=== PATIENT | female | born 1950 | race Hispanic/Latino ===

== ENCOUNTER → 2020-05-08 | Outpatient (CLI) | payer MEDICARE | END | disposition home or self-care (01) | LOC: SHCH 12:37 | PROVIDERS: ATTEND Internal Medicine Cardiovascular Disease | DX: Z01.810 Encounter for preprocedural cardiovascular examination (principal); I10 Essential (primary) hypertension; I11.9 Hypertensive heart disease without heart failure | CPT/HCPCS: 93306; 93356 ==

== ENCOUNTER → 2020-12-28 | Outpatient (CLI) | payer MEDICARE ==
[~2020-12-28] VITALS: Ht 152.4 cm; Wt 72.1 kg
[2020-12-28] MEDS: REGADENOSON 0.4 MG/5 ML PF SYG IVP SCH (11:24)
== END | disposition home or self-care (01) ==
LOC: SHCH 07:57
PROVIDERS: ATTEND Internal Medicine Cardiovascular Disease
DX: R07.9 Chest pain, unspecified (principal)
CPT/HCPCS: 78452; 93017; 96374; A9500 ×2; J2785

== ENCOUNTER 2022-11-16 18:52 | Emergency (ER) | payer MEDICARE ==
[~2022-11-16] VITALS: Ht 152.4 cm; Wt 66.7 kg
[2022-11-16] MEDS ORDERED: ACETAMINOPHEN 500 MG TABLET PO ONE (20:00)
[2022-11-16] MEDS ORDERED: IBUP-1493 PO (21:13)
[2022-11-16] MEDS ORDERED: DIPH,PERTUSS(ACELL),TET VAC/PF 0.5 ML VIAL IM ONE (21:30)
[2022-11-16 21:31] VITALS: BP 133/72
== END 2022-11-16 21:38 | disposition home or self-care (01) ==
LOC: EDH 18:52
DX: S09.93XA Unspecified injury of face, initial encounter (principal); I10 Essential (primary) hypertension; Z90.49 Acquired absence of other specified parts of digestive tract; Z79.1 Long term (current) use of non-steroidal anti-inflammatories (NSAID); W22.8XXA Striking against or struck by other objects, initial encounter; Y93.89 Activity, other specified; Y92.89 Other specified places as the place of occurrence of the external cause; Y99.8 Other external cause status
CPT/HCPCS: 70450; 70480; 72125; 90471; 90715

== ENCOUNTER → 2023-05-01 | Outpatient (CLI) | payer OTHER, MEDICARE ==
[~2023-05-01] MED LIST: IBUP-1493 PO
== END | disposition home or self-care (01) ==
LOC: SHCH 14:34
PROVIDERS: ATTEND Internal Medicine Cardiovascular Disease
DX: I51.7 Cardiomegaly (principal); R01.1 Cardiac murmur, unspecified
CPT/HCPCS: 93306

== ENCOUNTER 2024-05-24 19:17 | Emergency (ER) | payer OTHER, MEDICARE ==
[~2024-05-24] VITALS: Ht 152.4 cm; Wt 68.0 kg
[2024-05-24 19:19] VITALS: BP 208/84; PULSE 88; RESP 20
[2024-05-24] MEDS: acetaMINOPHEN WITH coDEINE 1 TAB TAB PO ONE (19:56)
[2024-05-24] MEDS ORDERED: ACET-2079 PO (20:26)
== END 2024-05-24 20:51 | disposition home or self-care (01) ==
LOC: EDH 19:17
DX: M13.131 Monoarthritis, not elsewhere classified, right wrist (principal); I10 Essential (primary) hypertension; Z79.899 Other long term (current) drug therapy; Z90.49 Acquired absence of other specified parts of digestive tract; Z90.710 Acquired absence of both cervix and uterus; Z98.890 Other specified postprocedural states
CPT/HCPCS: 29125; 36415; 73080; 73090; 73110; 84550

== ENCOUNTER 2025-06-27 21:43 | Emergency (ER) | payer OTHER, MEDICARE ==
[~2025-06-27] VITALS: Ht 149.9 cm; Wt 67.1 kg
[~2025-06-27 21:43] MED LIST changes: +ACET-2079 PO
[2025-06-27 21:44] VITALS: TEMP 98.3
--- NOTE | 2025-06-27 22:25 | ERN ---
ED Note History of Present Illness Stated Complaint: RT FOOT PAIN Chief Complaint: FOOT INJURY/PAIN Time Seen by MD: 21:45 Time Seen by Midlevel: 21:45 Dictation: The patient is a 75-year-old female with history of hypertension who presents to the emergency department with complaints of right foot pain onset 2:00 p.m. after she accidentally stepped on a hole while out in the yard. Patient reports that her foot twisted. Denies any ankle pain. Denies any falls or any other trauma. Allergies: Coded Allergies: ibuprofen (Unverified Allergy, Intermediate, 06/27/25) Home Meds Active Scripts Acetaminophen with Codeine (Acetaminophen-Cod #3 Tablet) 300 Mg-30 Mg Tablet, 1 TAB PO Q6H PRN for MODERATE TO SEVERE PAIN, #12 TAB 0 Refills Prov:NANO ESPINOSA [employer] 05/24/24 Ibuprofen (Motrin/Advil) 800 Mg Tab, 800 MG PO TID, #30 TAB Prov:RALPH MCNEIL MD 11/16/22 Past Medical History Past Medical History: Hypertension Surgical History: Hysterectomy, Cholecystectomy, Other Surgical History Other: RT WRIST, LEFT LEG History: Not Applicable RN Note Reviewed/Agreed w/PFSH: Yes Review of System Dictation Constitutional: Negative for fever,chills, and weight loss Eyes: Negative for injury, pain,redness, and discharge ENT: Negative for injury,pain or swelling Cardiovascular: Negative for chest pain, palpitations, and edema Respiratory: Negative for shortness of breath, cough, and wheezing, Abdomen/GI: Negative for abdominal pain, nausea, vomiting, diarrhea, and constipation Back: Negative for injury and pain : Negative for injury, bleeding and discharge MS/Extremity: Positive for right foot pain Skin: Negative for rash, and discoloration Neuro: Negative for headache, weakness, numbness, tingling, and seizure Psych: Negative for suicide ideation, homicidal ideation, and hallucinations Initial Vital Sign VS Vital Signs Date Time Temp Pulse Resp B/P (MAP) Pulse Ox O2 Delivery O2 Flow Rate FiO2 06/27/25 21:44 98.2 94 20 187/73 94 Room Air 06/27/25 22:11 0 21 Physical Exam Dictation Vital Signs reviewed General Appearance: Alert, oriented x 3, no acute distress, well developed, nourished. Head and Face: non-traumatic. Eyes: PERRL, pink conjunctivas, eyelid no trauma, anterior chamber with arcus senilis. Ears: Pinnas intact and no signs of trauma or erythema ear canals clear and no discharge TM no erythema Nose: No discharge, no bleeding. Oropharynx: Mouth normal, tongue pink. pharynx clear,no erythema, tonsils no exudates, no abscesses noted, mucous membrane moist Neck: Supple, non-tender, no thyromegaly, no masses, no JVD, no bruits Breast:Deferred Chest:No tenderness, no crepitus, no paradoxical movement, no retractions Lungs:Clear, well-ventilated, symmetric, no rales, no wheezing, no rhonchi, no stridor, good breath sounds bilaterally Heart: Regular rate, regular rhythm, no murmur, no gallops Vascular: no peripheral edema, Abdomen: Soft, positive bowel sounds, nondistended, no guarding, nontender, no rebound, no masses no hepatomegaly, no splenomegaly, no Fuchs's sign, no hernias. Rectal: Deferred Genital: Deferred Neurological: Normal speech, motor function intact, sensory function intact Musculoskeletal: Neck nontender, full range of motion, back nontender, full range of motion, mid dorsal foot tenderness, no deformities, no open wounds Extremities: nontender, full range of motion Skin: Color pink, dry, no turgor, no rash, no lacerations, no abrasions, no contusions. Lymphatic: Deferred Results (Laboratory/Radiology) Laboratory/Radiology EXAM: CR Right Foot, 3 views. CLINICAL HISTORY: Pain. Injury. COMPARISON: None provided. FINDINGS: No acute fracture or aggressive appearing osseous lesion. Mild osteopenia. Mild to moderate osteoarthritis. Tiny plantar and posterior calcaneal enthesophytes. The soft tissues are unremarkable. IMPRESSION: No acute bony abnormality is evident. Osteopenia and degenerative osseous changes. /[facility]ick Labs Reviewed?: Yes ED Course ED Course Orders Procedure Category Date Status Time Foot Comp 3+Vws Rt RAD 06/27/25 Resulted 21:58 Ketorolac 60mg/2ml PHA 06/27/25 Complete (Toradol 60mg/2ml) 22:00 Ibuprofen 200 Mg PHA 06/27/25 Complete Tablet (Motrin) 22:30 Ibuprofen 200 Mg PHA 06/27/25 Complete Tablet (Motrin) 22:21 Current Medications Medications (Trade) Dose Ordered Sig/Jelly Route PRN Reason Start Time Stop Time Status Last Admin Dose Admin Ibuprofen (moTRIN) 200 mg ONCE ONCE PO 06/27/25 22:30 06/27/25 22:31 DC 06/27/25 22:23 Ibuprofen (moTRIN) 200 mg STK-MED ONCE .ROUTE 06/27/25 22:21 06/27/25 22:21 DC Ketorolac Tromethamine (toRADol 60MG/ 2ML) 30 mg ONCE ONCE IM 06/27/25 22:00 06/27/25 22:18 DC Vital Signs Date Time Temp Pulse Resp B/P (MAP) Pulse Ox O2 Delivery O2 Flow Rate FiO2 06/27/25 23:11 72 18 166/77 95 Room Air* 0 21 06/27/25 22:11 88 18 184/71 95 Room Air* 0 21 06/27/25 21:44 98.2 94 20 187/73 94 Room Air Medical Decision Making MDM The patient is a 75-year-old female with history of hypertension who presents to the emergency department with complaints of right foot pain onset 2:00 p.m. after she accidentally stepped on a hole while out in the yard. Patient reports that her foot twisted. Denies any ankle pain. Denies any falls or any other trauma. X-ray showed no acute fractures or dislocations. Patient reports improving pain with medication. Patient reported that she had an allergic reaction to ibuprofen in the past she reported that she got short of breath. Patient mentions this after the fact that she received ibuprofen but patient did not have any reaction to the ibuprofen. Patient will be discharged to follow up with PCP. Patient in no acute distress, neurovascularly intact. Differential diagnosis: Foot fracture, foods sprain, dislocation Need for hospitalization: Patient does not meet criteria for hospitalization. There are no social concerns with this patient. DX & DISP Disposition: Discharge Departure Impression: Primary Impression: Right foot sprain Condition: Stable Additional Instructions: Your x-ray did not show any fractures. Please follow up with your primary doctor in 1-2 days. You can take Tylenol as needed for the pain. FOLLOW-UP WITH PRIMARY CARE PROVIDER IN 1 TO 2 DAYS. TAKE MEDICATIONS DIRECTED HERE IN THE EMERGENCY ROOM. OKAY TO CONTINUE HOME MEDICATIONS UNLESS OTHERWISE DISCUSSED DURING YOUR VISIT IN THE EMERGENCY ROOM TODAY. RETURN TO YOUR NEAREST EMERGENCY ROOM IF SYMPTOMS WORSEN OR IF THERE IS NO IMPROVEMENT. CALL 911 IF YOU NEED IMMEDIATE ASSISTANCE. TAKE TYLENOL [id number] NEEDED AND IF NO CONTRAINDICATIONS ARE PRESENT. INCREASE ORAL HYDRATION. A WOUND CULTURE OR URINE CULTURE WAS ORDERED HERE IN THE EMERGENCY ROOM DEPARTMENT PLEASE FOLLOW-UP WITH PRIMARY CARE PROVIDER AND ADVISE THEM TO GET REPEAT PORTS FROM OUR FACILITY. IF YOU HAD ANY SANNA WRAP/SPLINTS THAT WERE APPLIED HERE, PLEASE DO NOT REMOVE THEM UNTIL YOU SEE YOUR PRIMARY CARE OR SPECIALTY. Referrals: ZORA BENJAMIN MD (PCP) Time of Disposition: 23:36 I have reviewed the case, and I agree with, Diagnosis and Plan [facility] Jun 27, 2025 22:25
--- NOTE | 2025-06-27 22:28 | NUR ---
PT ADMINISTERED PO IBUPROFEN 200MG AT THIS TIME. PATIENT WAS TAKING MEDICATION THE FAMILY MEMBER AT THE BEDSIDE STATED, "IS THE MEDICATION TYLENOL 3." PRIMARY NURSE INFORMED FAMILY MEMBER THAT THE MEDICATION WAS IBUPROFEN. FAMILY MEMBER STATED THAT THEY INFORMED SOMEONE THAT SHE WAS "ALLERGIC TO IBUPROFEN." PRIMARY NURSE INFORMED FAMILY MEMBER THAT PT CHART STATES SHE HAD, "NO KNOWN DRUG ALLERGIES" LISTED ON THE CHART. PRIMARY NURSE ASKED THE FAMILY MEMBER WHAT HAPPENS WHEN SHE TAKES IBUPROFEN AND THE PATIENT STATES SHE BECOMES SHORT OF BREATH. PT WAS PLACED ON MONITOR PRIOR TO ADMINISTRATION OF MEDICATION. PRIMARY NURSE INFORMED THE PATIENT AND THE FAMILY MEMBER THAT SHE WILL MONITOR VITAL SIGNS AND INFORM THE ER STALLION MANAGER. ER STALLION MANAGER MADE AWARE AT THIS TIME OF MEDICATION ADMINISTRATION, ER STALLION MANAGER STATES SHE ASKED THE PATIENT IF SHE WAS ALLERGIC TO ANYTHING, AND THE PATIENT REPORTED SHE WAS NOT.
--- NOTE | 2025-06-27 23:32 | HMCIMG ---
EXAM: CR Right Foot, 3 views. CLINICAL HISTORY: Pain. Injury. COMPARISON: None provided. FINDINGS: No acute fracture or aggressive appearing osseous lesion. Mild osteopenia. Mild to moderate osteoarthritis. Tiny plantar and posterior calcaneal enthesophytes. The soft tissues are unremarkable. IMPRESSION: No acute bony abnormality is evident. Osteopenia and degenerative osseous changes. /[place]
--- NOTE | 2025-06-27 23:52 | NUR ---
SANNA WRAP APPLIED TO RT FOOT AT THIS TIME DIRECTED BY ER PEANUT BUTTER MAKER. PT TOLERATED PROCEDURE WELL.
[2025-06-27 23:53] VITALS: BP 160/70; PULSE 73; RESP 18; O2SAT 96
--- NOTE | 2025-06-27 23:53 | NUR ---
PATIENT MONITORED CLOSESLY FOLLOWING ADMINISTRATION OF IBUPROFEN 200MG PO. NO ADVERSE REACTIONS OBSERVED. VITAL SIGNS REMAINED WITHIN NORMAL LIMITS THROUGHOUT OBSERVATION PERIOD. PATIENT DENIED CHEST PAIN, SOB, RASH, ITCHING, SWELLING, OR ANY OTHER S/S OF AN ALLERGIC REACTION. PRIOR TO DISCHARGE, PT STATED SHE FELT "OKAY" AND EXPRESSED NO NEW COMPLAINTS. CLEARED FOR DISCHARGE IN STABLE CONDITION. DISCHARGE VITAL SIGNS DOCUMENTED IN PT CHART.
== END 2025-06-27 23:54 | disposition home or self-care (01) ==
LOC: EDH 21:43
DX: S93.601A Unspecified sprain of right foot, initial encounter (principal); I10 Essential (primary) hypertension; Z79.1 Long term (current) use of non-steroidal anti-inflammatories (NSAID); Z88.6 Allergy status to analgesic agent; Z90.49 Acquired absence of other specified parts of digestive tract; Z90.710 Acquired absence of both cervix and uterus; W17.2XXA Fall into hole, initial encounter; Y93.01 Activity, walking, marching and hiking; Y92.89 Other specified places as the place of occurrence of the external cause; Y99.8 Other external cause status
CPT/HCPCS: 73630; 99284